=== PATIENT | female | born 1935 | race African-American/Black ===

== ENCOUNTER 2016-12-11 10:50 | Inpatient (IN) | payer OTHER ==
[2016-12-11] VITALS (14 sets, daily range): BP systolic 103–169; BP diastolic 44–78
[~2016-12-11] VITALS: Ht 162.6 cm; Wt 61.8 kg
[~2016-12-11 10:50] MED LIST: AYR SALINE NA14.1 GM BOTH NARES; FEOSOL44 MG/ML PO; FOLIC ACID1 MG PO; ISOSORBIDE DINI10 MG PO; ISOSORBIDE MONO30 MG PO; LISINOPRIL10 MG PO; LOPRESSOR25 MG PO; PANTOPRAZOLE SO40 MG PO; PREDNISONE5 MG/1 ML PO; PROTONIX40 MG PO; TYLENOL W/ CODE10 ML PO; VITAMIN C PO; VITAMIN C1000 M1 PO; VITAMIN D32000 UNI1 PO; ZESTRIL30 MG PO; [UNRECOGNIZED DRUG - OTHER] MC
[2016-12-11 11:44] LABS: EOSINOPHIL (%) 1.9 % (0-5); EOSINOPHIL COUNT 0.1 K/uL (0-0.3); HEMATOCRIT 16.5 % (36.0-46.0); IMMATURE GRANULOCYTE (%) 0.2 % (0.0-0.7); INSTRUMENT ABS NEUTROPHIL CT 3.6 K/uL; LYMPHOCYTE COUNT 0.3 K/uL (1.0-2.8); MCH 25.3 PG (29.0-34.0); MCHC 29.7 G/DL (30.0-36.0); MCV 85.1 FL (83-99); MEAN PLAT.VOLUME 12.1 uM^3 (9.5-12.4); MONOCYTE (%) 6.6 % (3-12); MONOCYTE COUNT 0.3 K/uL (0-0.8); NEUTROPHIL (%) 84.2 % (45-76); NEUTROPHIL COUNT 3.6 K/uL (1.8-6.4); PLATELET COUNT 227 K/uL (156-360); RBC DIS.WIDTH-CV 19.7 % (11.8-14.6); RED BLOOD COUNT 1.94 M/uL (3.80-5.20); WHITE BLOOD COUNT 4.2 K/uL (4.1-10.2)
[2016-12-11 11:45] LABS: INTER. NORMALIZED RATIO 1.1; PROTHROMBIN TIME 11.6 SEC (10.2-12.9)
[2016-12-11 11:46] LABS: CHLORIDE 115 mEq/L (99-109); POTASSIUM 4.3 mEq/L (3.7-5.4); SODIUM 141 mEq/L (136-147)
[2016-12-11 11:48] LABS: GLUCOSE 130 mg/dL (70-99)
[2016-12-11 11:49] LABS: ANION GAP 6 MEQ/L (2-14)
[2016-12-11 11:52] LABS: GFR ESTIMATE (CALCULATED) 46 mL/min/
[2016-12-11 11:53] LABS: UREA NITROGEN (BUN) 18 mg/dL (9-23)
[2016-12-11] MEDS ORDERED: AYR SALINE50 ML BOTH NARES (12:38)
[2016-12-11 21:46] LABS: HEMATOCRIT 22.8 % (36.0-46.0); MCV 85.4 FL (83-99)
[2016-12-12] VITALS (15 sets, daily range): BP systolic 136–171; BP diastolic 57–76
== END 2016-12-12 18:56 | disposition home or self-care (01) | DRG 812 ==
LOC: EME → EDBD 10:50 → EDOF 12:49 → 2EAST 12:49 → ENRESERV 13:24 → 2EAST 15:02
PROVIDERS: Internal Medicine Hematology & Oncology; Personal Emergency Response Attendant
DX: D50.0 Iron deficiency anemia secondary to blood loss (chronic) (principal); R04.0 Epistaxis; I78.0 Hereditary hemorrhagic telangiectasia; R55 Syncope and collapse; I10 Essential (primary) hypertension; K21.9 Gastro-esophageal reflux disease without esophagitis; M81.0 Age-related osteoporosis without current pathological fracture; R00.2 Palpitations
CPT/HCPCS: 80048; 85014; 85018; 85025; 85610; 85730; 86850; 86900; 86901; 86920; 93005; 99281; 99285; J1200; J1940; P9016

== ENCOUNTER 2017-01-02 16:02 | Observation (INO) | payer OTHER ==
[~2017-01-02] VITALS: Ht 165.1 cm; Wt 61.9 kg
[~2017-01-02 16:02] MED LIST changes: +AYR SALINE50 ML BOTH NARES
[2017-01-02 17:02] LABS: HEMATOCRIT 22.5 % (36.0-46.0); MCH 26.7 PG (29.0-34.0); MCHC 29.8 G/DL (30.0-36.0); PLATELET COUNT 196 K/uL (156-360); RBC DIS.WIDTH-CV 19.9 % (11.8-14.6); RED BLOOD COUNT 2.51 M/uL (3.80-5.20)
[2017-01-02 17:04] LABS: PROTHROMBIN TIME 11.5 SEC (10.2-12.9)
[2017-01-02 17:06] LABS: PTT 28.5 SEC (25-37)
[2017-01-02 17:06] LABS: MCV 89.6 FL (83-99); MEAN PLAT.VOLUME 9.1 uM^3 (9.5-12.4)
[2017-01-02 17:09] LABS: CHLORIDE 111 mEq/L (99-109); POTASSIUM 4.5 mEq/L (3.7-5.4); SODIUM 141 mEq/L (136-147)
[2017-01-02 17:11] LABS: GLUCOSE 137 mg/dL (70-99)
[2017-01-02 17:13] LABS: ANION GAP 9 MEQ/L (2-14)
[2017-01-02 17:15] LABS: GFR ESTIMATE (CALCULATED) 50 mL/min/
[2017-01-02 17:16] LABS: UREA NITROGEN (BUN) 15 mg/dL (9-23)
[2017-01-02 17:18] LABS: TROP-I INTERPRETATION NEGATIVE; TROPONIN-I < 0.01 ng/mL (0.0-0.30)
[2017-01-02 21:17] VITALS: BP 124/63
[2017-01-02 22:36] VITALS: BP 118/56
[2017-01-02 23:30] VITALS: BP 120/65
[2017-01-03] VITALS (8 sets, daily range): BP systolic 120–143; BP diastolic 57–66
[2017-01-03 03:24] LABS: HEMATOCRIT 25.2 % (36.0-46.0); MCV 87.5 FL (83-99)
[2017-01-03 09:33] LABS: HEMATOCRIT 28.5 % (36.0-46.0); MCV 87.7 FL (83-99)
== END 2017-01-03 13:15 | disposition home or self-care (01) ==
LOC: EME → EDBD 16:02 → EDOF 20:37 → ENRESERV 20:38 → 5WEST 22:21
PROVIDERS: Emergency Medicine; Hospitalist; Internal Medicine
PROC: 30233N1 Transfusion of Nonautologous Red Blood Cells into Peripheral Vein, Percutaneous Approach (ICD-10-PCS; principal; 2017-01-02)
DX: D50.0 Iron deficiency anemia secondary to blood loss (chronic) (principal); R55 Syncope and collapse; I78.0 Hereditary hemorrhagic telangiectasia; R04.0 Epistaxis; I10 Essential (primary) hypertension; M81.0 Age-related osteoporosis without current pathological fracture; K21.9 Gastro-esophageal reflux disease without esophagitis; R00.2 Palpitations
CPT/HCPCS: 70450; 71020; 80048; 84484; 85014; 85018; 85027; 85610; 85730; 86850; 86900; 86901; 86920; 93005; 99281; 99285; G0378; J1200; J1940; P9016

== ENCOUNTER 2017-01-17 16:05 | Observation (INO) | payer OTHER ==
[2017-01-17] VITALS (8 sets, daily range): BP systolic 114–152; BP diastolic 57–70
[~2017-01-17] VITALS: Ht 162.6 cm; Wt 61.3 kg
[2017-01-18] VITALS (9 sets, daily range): BP systolic 116–186; BP diastolic 58–76
[2017-01-18 08:27] LABS: MCH 27.2 PG (29.0-34.0); MCHC 30.3 G/DL (30.0-36.0); MCV 89.6 FL (83-99); MEAN PLAT.VOLUME 11.6 uM^3 (9.5-12.4); PLATELET COUNT 156 K/uL (156-360); RBC DIS.WIDTH-CV 16.2 % (11.8-14.6); RBC DIS.WIDTH-SD 53.1 % (39-53); RED BLOOD COUNT 3.35 M/uL (3.80-5.20); WHITE BLOOD COUNT 3.3 K/uL (4.1-10.2)
[2017-01-18 09:26] LABS: ANION GAP 5 MEQ/L (2-14); CHLORIDE 115 MEQ/L (99-109); POTASSIUM 4.6 MEQ/L (3.7-5.4); SAMPLE HEMOLYSIS CHECK 0; SAMPLE ICTERIC CHECK 1; SAMPLE LIPEMIA CHECK 0; SODIUM 144 MEQ/L (136-147)
[2017-01-18 09:31] LABS: GFR ESTIMATE (CALCULATED) 55 mL/min/; GLUCOSE 96 mg/dL (70-99); UREA NITROGEN (BUN) 16 mg/dL (9-23)
[2017-01-18 10:18] LABS: TROP-I INTERPRETATION NEGATIVE; TROPONIN-I 0.02 ng/mL (0.0-0.30)
== END 2017-01-18 14:30 | disposition home or self-care (01) ==
LOC: EME 16:05 → EDOF 16:49 → ENRESERV 16:54 → 5WEST 18:12
PROVIDERS: Internal Medicine; Nurse Practitioner Adult Health
PROC: 30233N1 Transfusion of Nonautologous Red Blood Cells into Peripheral Vein, Percutaneous Approach (ICD-10-PCS; principal; 2017-01-17)
DX: D50.0 Iron deficiency anemia secondary to blood loss (chronic) (principal); I78.0 Hereditary hemorrhagic telangiectasia; R07.9 Chest pain, unspecified; R04.0 Epistaxis; I10 Essential (primary) hypertension; M81.0 Age-related osteoporosis without current pathological fracture; K21.9 Gastro-esophageal reflux disease without esophagitis; Z66 Do not resuscitate
CPT/HCPCS: 80048; 84484; 85027; 86850; 86900; 86901; 86905; 86920; 93005; 99281; 99285; G0378; P9016

== ENCOUNTER 2017-02-14 12:03 | Observation (INO) | payer OTHER ==
[~2017-02-14] VITALS: Ht 167.6 cm; Wt 70.0 kg
[2017-02-14] MEDS ORDERED: TAMOXIFEN (13:38)
[2017-02-14 15:50] VITALS: BP 164/67
[2017-02-14 19:07] VITALS: BP 125/62
[2017-02-14 22:42] LABS: HEMATOCRIT 23.3 % (36.0-46.0); MCV 88.3 FL (83-99)
[2017-02-14 22:56] LABS: CHLORIDE 114 mEq/L (99-109); POTASSIUM 4.4 mEq/L (3.7-5.4); SODIUM 141 mEq/L (136-147)
[2017-02-14 22:58] LABS: GLUCOSE 121 mg/dL (70-99)
[2017-02-14 22:59] LABS: ANION GAP 4 MEQ/L (2-14)
[2017-02-14 23:02] LABS: ALKALINE PHOSPHATASE 61 IU/L (3-129); GFR ESTIMATE (CALCULATED) 55 mL/min/; TROP-I INTERPRETATION NEGATIVE; TROPONIN-I < 0.01 ng/mL (0.0-0.30)
[2017-02-14 23:03] LABS: UREA NITROGEN (BUN) 21 mg/dL (9-23)
[2017-02-14 23:50] VITALS: BP 137/60
[2017-02-15 03:57] VITALS: BP 160/68
[2017-02-15 04:05] LABS: ADD MIUA? YES; BILIRUBIN NEGATIVE; BLOOD NEGATIVE; COLOR YELLOW ((YELLOW)); GLUCOSE (STRIP) NEGATIVE; KETONES NEGATIVE; LEUKOCYTES SMALL; NITRITE NEGATIVE; PROTEIN (STRIP) NEGATIVE; SPECIFIC GRAVITY 1.011 (1.000-1.030); UROBILINOGEN 0.2 MG/DL (0.2-1.0)
[2017-02-15 04:15] LABS: BACTERIA RARE /HPF; EPITHELIAL CELLS RARE /HPF; MUCUS TRACE /LPF; RED BLOOD CELLS 0-5 /HPF (0-5); WHITE BLOOD CELLS 0-5 /HPF (0-5)
[2017-02-15 07:53] VITALS: BP 128/61
== END 2017-02-15 12:05 | disposition home or self-care (01) ==
LOC: EME 12:03 → 5SOUTH 13:07 → EDOF 13:07 → ENRESERV 13:08 → 5SOUTH 15:15 → ENPENDDIS 02-15 → 5SOUTH 02-15 12:05
PROVIDERS: Internal Medicine; Internal Medicine Hematology & Oncology
PROC: 30233N1 Transfusion of Nonautologous Red Blood Cells into Peripheral Vein, Percutaneous Approach (ICD-10-PCS; principal; 2017-02-14)
DX: D50.0 Iron deficiency anemia secondary to blood loss (chronic) (principal); I78.0 Hereditary hemorrhagic telangiectasia; R04.0 Epistaxis; I10 Essential (primary) hypertension; M81.0 Age-related osteoporosis without current pathological fracture; K21.9 Gastro-esophageal reflux disease without esophagitis; F41.9 Anxiety disorder, unspecified
CPT/HCPCS: 80048; 80053; 81003; 83735; 84484; 85014; 85018; 85027; 86850; 86900; 86901; 93005; 99281; 99285; G0378; J1200; J1940

== ENCOUNTER 2017-02-23 11:39 | Inpatient (IN) | payer OTHER ==
[~2017-02-23] VITALS: Ht 167.6 cm; Wt 64.9 kg
[~2017-02-23 11:39] MED LIST changes: +TAMOXIFEN PO
[2017-02-23 12:14] LABS: ADD MIUA? YES; BILIRUBIN NEGATIVE; BLOOD NEGATIVE; COLOR YELLOW ((YELLOW)); GLUCOSE (STRIP) NEGATIVE; KETONES NEGATIVE; LEUKOCYTES MODERATE; NITRITE NEGATIVE; PROTEIN (STRIP) NEGATIVE; SPECIFIC GRAVITY 1.009 (1.000-1.030); UROBILINOGEN 0.2 MG/DL (0.2-1.0)
[2017-02-23 12:24] LABS: BACTERIA NONE SEEN /HPF; CALCIUM OXALATE CRYSTALS 1+ /HPF; EPITHELIAL CELLS RARE /HPF; MUCUS TRACE /LPF; RED BLOOD CELLS 0-5 /HPF (0-5); UCUL ADDED? YES
[2017-02-23 12:25] LABS: HEMATOCRIT 22.1 % (36.0-46.0); MCH 28.2 PG (29.0-34.0); MCHC 29.9 G/DL (30.0-36.0); MEAN PLAT.VOLUME 12.4 uM^3 (9.5-12.4); PLATELET COUNT 212 K/uL (156-360); RBC DIS.WIDTH-CV 20.4 % (11.8-14.6); RBC DIS.WIDTH-SD 66.1 % (39-53); RED BLOOD COUNT 2.34 M/uL (3.80-5.20); WHITE BLOOD COUNT 5.6 K/uL (4.1-10.2)
[2017-02-23 12:26] LABS: MCV 94.4 FL (83-99)
[2017-02-23 12:30] LABS: CHLORIDE 112 mEq/L (99-109); POTASSIUM 4.4 mEq/L (3.7-5.4); SODIUM 142 mEq/L (136-147)
[2017-02-23 12:33] LABS: GLUCOSE 114 mg/dL (70-99)
[2017-02-23 12:34] LABS: ANION GAP 7 MEQ/L (2-14)
[2017-02-23 12:35] LABS: TOTAL BILIRUBIN 0.6 mg/dL (0.0-1.0)
[2017-02-23 12:36] LABS: ALKALINE PHOSPHATASE 54 IU/L (3-129); GFR ESTIMATE (CALCULATED) 46 mL/min/
[2017-02-23 12:38] LABS: UREA NITROGEN (BUN) 18 mg/dL (9-23)
[2017-02-23 16:15] VITALS: BP 145/61
[2017-02-23 16:56] VITALS: BP 132/70
[2017-02-23 17:15] VITALS: BP 129/69
[2017-02-23 18:15] VITALS: BP 126/58
[2017-02-23 19:15] VITALS: BP 134/60
[2017-02-23 23:00] VITALS: BP 117/56
[2017-02-24] VITALS (10 sets, daily range): BP systolic 115–164; BP diastolic 56–74
[2017-02-24 06:08] LABS: HEMATOCRIT 29.2 % (36.0-46.0); MCV 92.7 FL (83-99)
[2017-02-24 06:09] LABS: HEMATOCRIT 29.1 % (36.0-46.0); MCH 29.9 PG (29.0-34.0); MCV 93.6 FL (83-99); MEAN PLAT.VOLUME 11.8 uM^3 (9.5-12.4); PLATELET COUNT 152 K/uL (156-360); RBC DIS.WIDTH-CV 17.8 % (11.8-14.6); RBC DIS.WIDTH-SD 60.3 % (39-53); WHITE BLOOD COUNT 3.4 K/uL (4.1-10.2)
[2017-02-24 06:12] LABS: PROTHROMBIN TIME 11.6 SEC (10.2-12.9)
[2017-02-24 06:18] LABS: ANION GAP 6 MEQ/L (2-14); CHLORIDE 116 MEQ/L (99-109); GFR ESTIMATE (CALCULATED) 50 mL/min/; POTASSIUM 4.5 MEQ/L (3.7-5.4); SAMPLE HEMOLYSIS CHECK 0; SAMPLE ICTERIC CHECK 0; SAMPLE LIPEMIA CHECK 0; SODIUM 143 MEQ/L (136-147); UREA NITROGEN (BUN) 18 mg/dL (9-23)
[2017-02-24 06:19] LABS: RED BLOOD COUNT 3.11 M/uL (3.80-5.20)
[2017-02-24 06:40] LABS: GLUCOSE 84 mg/dL (70-99)
[2017-02-24 09:36] LABS: INTERNAL CONTROL VALID? YES
[2017-02-25 07:05] LABS: EOSINOPHIL (%) 4.4 % (0-5); EOSINOPHIL COUNT 0.2 K/uL (0-0.3); HEMATOCRIT 29.9 % (36.0-46.0); IMMATURE GRANULOCYTE (%) 0.2 % (0.0-0.7); INSTRUMENT ABS NEUTROPHIL CT 3.5 K/uL; LYMPHOCYTE COUNT 0.3 K/uL (1.0-2.8); MCH 29.7 PG (29.0-34.0); MCHC 31.4 G/DL (30.0-36.0); MCV 94.6 FL (83-99); MEAN PLAT.VOLUME 13.1 uM^3 (9.5-12.4); MONOCYTE (%) 7.5 % (3-12); MONOCYTE COUNT 0.3 K/uL (0-0.8); NEUTROPHIL (%) 81.9 % (45-76); NEUTROPHIL COUNT 3.5 K/uL (1.8-6.4); PLATELET COUNT 160 K/uL (156-360); RBC DIS.WIDTH-SD 62.4 % (39-53); RED BLOOD COUNT 3.16 M/uL (3.80-5.20); WHITE BLOOD COUNT 4.3 K/uL (4.1-10.2)
[2017-02-25 07:29] LABS: ANION GAP 6 MEQ/L (2-14); CHLORIDE 114 MEQ/L (99-109); GFR ESTIMATE (CALCULATED) 50 mL/min/; GLUCOSE 104 mg/dL (70-99); POTASSIUM 4.1 MEQ/L (3.7-5.4); SAMPLE HEMOLYSIS CHECK 0; SAMPLE ICTERIC CHECK 0; SAMPLE LIPEMIA CHECK 0; SODIUM 143 MEQ/L (136-147); UREA NITROGEN (BUN) 13 mg/dL (9-23)
[2017-02-25 07:30] VITALS: BP 134/63
[2017-02-25 11:05] VITALS: BP 152/64
[2017-02-25 15:46] VITALS: BP 145/64
[2017-02-25 19:46] VITALS: BP 154/76
[2017-02-26 00:05] VITALS: BP 143/71
[2017-02-26 04:37] VITALS: BP 133/71
[2017-02-26 07:06] LABS: HEMATOCRIT 29.6 % (36.0-46.0); MCH 29.4 PG (29.0-34.0); MCHC 31.8 G/DL (30.0-36.0); MCV 92.5 FL (83-99); MEAN PLAT.VOLUME 11.6 uM^3 (9.5-12.4); PLATELET COUNT 150 K/uL (156-360); RBC DIS.WIDTH-CV 17.6 % (11.8-14.6); WHITE BLOOD COUNT 3.3 K/uL (4.1-10.2)
[2017-02-26 07:31] VITALS: BP 140/90
[2017-02-26 07:31] LABS: ANION GAP 7 MEQ/L (2-14); CHLORIDE 112 MEQ/L (99-109); GFR ESTIMATE (CALCULATED) 55 mL/min/; GLUCOSE 84 mg/dL (70-99); POTASSIUM 4.3 MEQ/L (3.7-5.4); SAMPLE HEMOLYSIS CHECK 0; SAMPLE ICTERIC CHECK 0; SAMPLE LIPEMIA CHECK 0; SODIUM 141 MEQ/L (136-147); UREA NITROGEN (BUN) 10 mg/dL (9-23)
[2017-02-26] MEDS ORDERED: PANTOPRAZOLE SO40 MG PO (09:17)
[2017-02-26 11:27] VITALS: BP 144/88
== END 2017-02-26 14:47 | disposition home or self-care (01) | DRG 378 ==
LOC: EME 11:39 → EDOF 13:32 → 5SOUTH 13:32 → ENRESERV 13:35 → 5SOUTH 15:10
PROVIDERS: Internal Medicine
DX: K31.811 Angiodysplasia of stomach and duodenum with bleeding (principal); D62 Acute posthemorrhagic anemia; N17.9 Acute kidney failure, unspecified; I78.0 Hereditary hemorrhagic telangiectasia; K22.2 Esophageal obstruction; K31.5 Obstruction of duodenum; R04.0 Epistaxis; D50.9 Iron deficiency anemia, unspecified; I10 Essential (primary) hypertension; K21.9 Gastro-esophageal reflux disease without esophagitis; M81.0 Age-related osteoporosis without current pathological fracture
CPT/HCPCS: 80048; 80053; 81003; 82272; 85014; 85018; 85025; 85027; 85610; 85730; 86850; 86900; 86901; 86920; 87086; 93005; 99281; 99285; C9113; J0696; J1200; J7050; P9016

== ENCOUNTER 2017-03-04 14:24 | Inpatient (IN) | payer OTHER ==
[~2017-03-04] VITALS: Ht 167.6 cm; Wt 67.4 kg
[2017-03-04 15:26] LABS: HEMATOCRIT 31.7 % (36.0-46.0); MCHC 31.2 G/DL (30.0-36.0); MCV 89.8 FL (83-99); PLATELET COUNT 176 K/uL (156-360); RBC DIS.WIDTH-CV 16.8 % (11.8-14.6); RBC DIS.WIDTH-SD 54.4 % (39-53); RED BLOOD COUNT 3.53 M/uL (3.80-5.20); WHITE BLOOD COUNT 11.1 K/uL (4.1-10.2)
[2017-03-04 15:37] LABS: CHLORIDE 112 mEq/L (99-109); POTASSIUM 3.7 mEq/L (3.7-5.4)
[2017-03-04 15:38] LABS: SODIUM 143 mEq/L (136-147)
[2017-03-04 15:39] LABS: GLUCOSE 107 mg/dL (70-99)
[2017-03-04 15:41] LABS: ANION GAP 10 MEQ/L (2-14)
[2017-03-04 15:43] LABS: GFR ESTIMATE (CALCULATED) 50 mL/min/
[2017-03-04 15:44] LABS: UREA NITROGEN (BUN) 14 mg/dL (9-23)
[2017-03-04 15:48] LABS: TROP-I INTERPRETATION NEGATIVE; TROPONIN-I 0.04 ng/mL (0.0-0.30)
[2017-03-04 17:33] LABS: HDL CHOLESTEROL 53 MG/DL (Desirable>=50); LDL CHOLESTEROL 95 mg/dL (Desirable<100); NON-HDL CHOLESTEROL 108 mg/dL (Desirable<160); SAMPLE HEMOLYSIS CHECK 0; SAMPLE ICTERIC CHECK 0; SAMPLE LIPEMIA CHECK 0; TOTAL CHOLESTEROL 161 mg/dL (Desirable<200); TRIGLYCERIDES 65 MG/DL (Normal: <150)
[2017-03-04 19:59] VITALS: BP 103/58
[2017-03-04 22:26] LABS: TROP-I INTERPRETATION NEGATIVE; TROPONIN-I 0.07 ng/mL (0.0-0.30)
[2017-03-04 23:38] VITALS: BP 121/55
[2017-03-05 02:43] LABS: C DIFF TOXIN POSITIVE (NEGATIVE)
[2017-03-05 02:45] LABS: PROBE CHECK PASS
[2017-03-05 04:00] VITALS: BP 134/71
[2017-03-05 08:30] VITALS: BP 132/74
[2017-03-05 12:20] VITALS: BP 137/75
[2017-03-05 12:59] LABS: ANION GAP 8 MEQ/L (2-14); CHLORIDE 109 MEQ/L (99-109); SAMPLE HEMOLYSIS CHECK 2; SAMPLE ICTERIC CHECK 0; SAMPLE LIPEMIA CHECK 0; SODIUM 140 MEQ/L (136-147)
[2017-03-05 13:00] LABS: POTASSIUM 4.9 MEQ/L (3.7-5.4)
[2017-03-05 13:05] LABS: GFR ESTIMATE (CALCULATED) 43 mL/min/; GLUCOSE 110 mg/dL (70-99); UREA NITROGEN (BUN) 19 mg/dL (9-23)
[2017-03-05 13:07] LABS: TROP-I INTERPRETATION NEGATIVE; TROPONIN-I 0.07 ng/mL (0.0-0.30)
[2017-03-05 13:08] LABS: HEMATOCRIT 33.2 % (36.0-46.0); MCH 27.6 PG (29.0-34.0); MCHC 30.4 G/DL (30.0-36.0); MCV 90.7 FL (83-99); PLATELET COUNT 219 K/uL (156-360); RBC DIS.WIDTH-CV 17.1 % (11.8-14.6); RBC DIS.WIDTH-SD 56.2 % (39-53); RED BLOOD COUNT 3.66 M/uL (3.80-5.20); WHITE BLOOD COUNT 10.9 K/uL (4.1-10.2)
[2017-03-05 16:10] VITALS: BP 130/72
[2017-03-05 19:00] VITALS: BP 130/55
[2017-03-06] VITALS (7 sets, daily range): BP systolic 108–169; BP diastolic 50–74
[2017-03-06 07:23] LABS: ANION GAP 8 MEQ/L (2-14); CHLORIDE 109 MEQ/L (99-109); EOSINOPHIL (%) 1.1 % (0-5); EOSINOPHIL COUNT 0.1 K/uL (0-0.3); GFR ESTIMATE (CALCULATED) 35 mL/min/; GLUCOSE 104 mg/dL (70-99); HEMATOCRIT 31.1 % (36.0-46.0); IMMATURE GRANULOCYTE (%) 0.5 % (0.0-0.7); INSTRUMENT ABS NEUTROPHIL CT 5.7 K/uL; LYMPHOCYTE COUNT 0.3 K/uL (1.0-2.8); MCH 27.7 PG (29.0-34.0); MCHC 30.5 G/DL (30.0-36.0); MCV 90.7 FL (83-99); MONOCYTE (%) 5.4 % (3-12); MONOCYTE COUNT 0.4 K/uL (0-0.8); NEUTROPHIL (%) 88.8 % (45-76); NEUTROPHIL COUNT 5.7 K/uL (1.8-6.4); RBC DIS.WIDTH-CV 16.9 % (11.8-14.6); RBC DIS.WIDTH-SD 55.6 % (39-53); RED BLOOD COUNT 3.43 M/uL (3.80-5.20); SAMPLE HEMOLYSIS CHECK 0; SAMPLE ICTERIC CHECK 0; SAMPLE LIPEMIA CHECK 0; SODIUM 140 MEQ/L (136-147); UREA NITROGEN (BUN) 25 mg/dL (9-23); WHITE BLOOD COUNT 6.5 K/uL (4.1-10.2)
[2017-03-06 07:25] LABS: POTASSIUM 3.6 MEQ/L (3.7-5.4)
[2017-03-06 07:45] LABS: PLAT.SUFFICIENCY DECREASED
[2017-03-06 07:46] LABS: PLATELET COUNT 135 K/uL (156-360)
[2017-03-07 04:10] VITALS: BP 135/71
[2017-03-07 06:13] LABS: EOSINOPHIL (%) 1.6 % (0-5); EOSINOPHIL COUNT 0.1 K/uL (0-0.3); HEMATOCRIT 29.7 % (36.0-46.0); IMMATURE GRANULOCYTE (%) 0.5 % (0.0-0.7); INSTRUMENT ABS NEUTROPHIL CT 3.6 K/uL; LYMPHOCYTE COUNT 0.3 K/uL (1.0-2.8); MCH 27.1 PG (29.0-34.0); MCHC 30.6 G/DL (30.0-36.0); MCV 88.4 FL (83-99); MONOCYTE (%) 6.9 % (3-12); MONOCYTE COUNT 0.3 K/uL (0-0.8); NEUTROPHIL (%) 83.1 % (45-76); NEUTROPHIL COUNT 3.6 K/uL (1.8-6.4); PLATELET COUNT 103 K/uL (156-360); RBC DIS.WIDTH-CV 17.1 % (11.8-14.6); RBC DIS.WIDTH-SD 53.9 % (39-53); RED BLOOD COUNT 3.36 M/uL (3.80-5.20); WHITE BLOOD COUNT 4.3 K/uL (4.1-10.2)
[2017-03-07 06:27] LABS: ANION GAP 8 MEQ/L (2-14); CHLORIDE 113 MEQ/L (99-109); GFR ESTIMATE (CALCULATED) 43 mL/min/; GLUCOSE 100 mg/dL (70-99); POTASSIUM 3.7 MEQ/L (3.7-5.4); SAMPLE HEMOLYSIS CHECK 0; SAMPLE ICTERIC CHECK 0; SAMPLE LIPEMIA CHECK 0; SODIUM 139 MEQ/L (136-147); UREA NITROGEN (BUN) 20 mg/dL (9-23)
[2017-03-07 07:30] VITALS: BP 132/77
[2017-03-07 11:21] VITALS: BP 155/68
[2017-03-07 15:16] VITALS: BP 164/70
[2017-03-07 20:36] VITALS: BP 137/76
[2017-03-07 22:20] VITALS: BP 108/69; BP 128/77
[2017-03-08 03:29] VITALS: BP 132/60
[2017-03-08 05:53] LABS: HEMATOCRIT 28.9 % (36.0-46.0); MCH 27.1 PG (29.0-34.0); MCHC 30.8 G/DL (30.0-36.0); MCV 87.8 FL (83-99); RBC DIS.WIDTH-CV 16.9 % (11.8-14.6); RBC DIS.WIDTH-SD 54.1 % (39-53); RED BLOOD COUNT 3.29 M/uL (3.80-5.20); WHITE BLOOD COUNT 3.6 K/uL (4.1-10.2)
[2017-03-08 05:56] LABS: PLATELET COUNT 189 K/uL (156-360)
[2017-03-08 06:29] LABS: ANION GAP 8 MEQ/L (2-14); CHLORIDE 116 MEQ/L (99-109); GFR ESTIMATE (CALCULATED) 50 mL/min/; GLUCOSE 95 mg/dL (70-99); POTASSIUM 3.6 MEQ/L (3.7-5.4); SAMPLE HEMOLYSIS CHECK 0; SAMPLE ICTERIC CHECK 0; SAMPLE LIPEMIA CHECK 0; SODIUM 142 MEQ/L (136-147); UREA NITROGEN (BUN) 19 mg/dL (9-23)
[2017-03-08 09:35] VITALS: BP 139/67
[2017-03-08 11:34] VITALS: BP 169/82
[2017-03-08 16:37] VITALS: BP 142/74
[2017-03-08 18:47] VITALS: BP 139/75
[2017-03-08 22:18] VITALS: BP 140/68
[2017-03-09] VITALS (7 sets, daily range): BP systolic 127–179; BP diastolic 67–81
[2017-03-09 06:39] LABS: EOSINOPHIL (%) 2.5 % (0-5); EOSINOPHIL COUNT 0.1 K/uL (0-0.3); IMMATURE GRANULOCYTE (%) 0.8 % (0.0-0.7); INSTRUMENT ABS NEUTROPHIL CT 2.8 K/uL; LYMPHOCYTE COUNT 0.3 K/uL (1.0-2.8); MCH 26.5 PG (29.0-34.0); MCHC 30.7 G/DL (30.0-36.0); MCV 86.4 FL (83-99); MONOCYTE (%) 6.8 % (3-12); MONOCYTE COUNT 0.2 K/uL (0-0.8); NEUTROPHIL (%) 80.2 % (45-76); NEUTROPHIL COUNT 2.8 K/uL (1.8-6.4); PLATELET COUNT 192 K/uL (156-360); RBC DIS.WIDTH-CV 17.1 % (11.8-14.6); RBC DIS.WIDTH-SD 53.1 % (39-53); RED BLOOD COUNT 3.24 M/uL (3.80-5.20); WHITE BLOOD COUNT 3.5 K/uL (4.1-10.2)
[2017-03-09 07:01] LABS: ANION GAP 8 MEQ/L (2-14); CHLORIDE 116 MEQ/L (99-109); GFR ESTIMATE (CALCULATED) 55 mL/min/; GLUCOSE 92 mg/dL (70-99); POTASSIUM 3.7 MEQ/L (3.7-5.4); SAMPLE HEMOLYSIS CHECK 0; SAMPLE ICTERIC CHECK 0; SAMPLE LIPEMIA CHECK 0; SODIUM 141 MEQ/L (136-147); UREA NITROGEN (BUN) 16 mg/dL (9-23)
[2017-03-09 09:30] LABS: TROP-I INTERPRETATION NEGATIVE; TROPONIN-I 0.03 ng/mL (0.0-0.30)
[2017-03-09 16:31] LABS: TROP-I INTERPRETATION NEGATIVE; TROPONIN-I 0.03 ng/mL (0.0-0.30)
[2017-03-10] VITALS (10 sets, daily range): BP systolic 112–167; BP diastolic 59–93
[2017-03-10 05:39] LABS: EOSINOPHIL (%) 4.4 % (0-5); EOSINOPHIL COUNT 0.2 K/uL (0-0.3); HEMATOCRIT 24.7 % (36.0-46.0); IMMATURE GRANULOCYTE (%) 0.6 % (0.0-0.7); INSTRUMENT ABS NEUTROPHIL CT 2.5 K/uL; LYMPHOCYTE COUNT 0.3 K/uL (1.0-2.8); MCH 26.3 PG (29.0-34.0); MCHC 30.8 G/DL (30.0-36.0); MCV 85.5 FL (83-99); MONOCYTE (%) 9.7 % (3-12); MONOCYTE COUNT 0.3 K/uL (0-0.8); NEUTROPHIL COUNT 2.5 K/uL (1.8-6.4); RBC DIS.WIDTH-CV 17.6 % (11.8-14.6); RBC DIS.WIDTH-SD 53.2 % (39-53); RED BLOOD COUNT 2.89 M/uL (3.80-5.20); WHITE BLOOD COUNT 3.4 K/uL (4.1-10.2)
[2017-03-10 05:48] LABS: ANION GAP 5 MEQ/L (2-14); CHLORIDE 117 MEQ/L (99-109); GFR ESTIMATE (CALCULATED) 55 mL/min/; GLUCOSE 90 mg/dL (70-99); POTASSIUM 3.6 MEQ/L (3.7-5.4); SAMPLE HEMOLYSIS CHECK 0; SAMPLE ICTERIC CHECK 0; SAMPLE LIPEMIA CHECK 0; SODIUM 142 MEQ/L (136-147); UREA NITROGEN (BUN) 16 mg/dL (9-23)
[2017-03-10 05:54] LABS: PLAT.SUFFICIENCY DECREASED
[2017-03-10 06:10] LABS: PLATELET COUNT 106 K/uL (156-360)
[2017-03-10] MEDS ORDERED: LOPRESSOR25 MG PO (16:08)
[2017-03-10] MEDS ORDERED: FLAGYL500 MG PO (16:09)
[2017-03-10] MEDS ORDERED: FAMOTIDINE20 MG PO (16:09)
[2017-03-10 18:34] LABS: HEMATOCRIT 31.8 % (36.0-46.0); MCV 85.3 FL (83-99)
== END 2017-03-10 21:10 | disposition home or self-care (01) | DRG 309 ==
LOC: EME → EDBD 14:24 → 4EAST 16:13 → EDOF 16:13 → ENRESERV 16:16 → 4EAST 19:39
PROVIDERS: Emergency Medicine; Internal Medicine; Internal Medicine Gastroenterology
DX: I48.91 Unspecified atrial fibrillation (principal); A04.72 Enterocolitis due to Clostridium difficile, not specified as recurrent; M19.90 Unspecified osteoarthritis, unspecified site; R55 Syncope and collapse; M81.0 Age-related osteoporosis without current pathological fracture; N17.9 Acute kidney failure, unspecified; I10 Essential (primary) hypertension; D64.9 Anemia, unspecified; I78.0 Hereditary hemorrhagic telangiectasia; K21.9 Gastro-esophageal reflux disease without esophagitis; I78.1 Nevus, non-neoplastic; E11.9 Type 2 diabetes mellitus without complications; Z79.810 Long term (current) use of selective estrogen receptor modulators (SERMs); Z82.49 Family history of ischemic heart disease and other diseases of the circulatory system; I35.0 Nonrheumatic aortic (valve) stenosis; R00.1 Bradycardia, unspecified
CPT/HCPCS: 71010; 80048; 80061; 84443; 84484; 85014; 85018; 85025; 85027; 86850; 86900; 86901; 86920; 87493; 93005; 93306; 99281; 99285; C9113; J1160; J1200; J2270; J7030; J7050; P9016; Q0138; S0030

== ENCOUNTER 2017-03-23 12:35 | Emergency (ER) | payer OTHER ==
[~2017-03-23] VITALS: Ht 165.1 cm; Wt 69.0 kg
[~2017-03-23 12:35] MED LIST changes: +FAMOTIDINE20 MG PO; +FLAGYL500 MG PO
[2017-03-23 13:58] LABS: CHLORIDE 111 mEq/L (99-109); POTASSIUM 3.9 mEq/L (3.7-5.4); SODIUM 144 mEq/L (136-147)
[2017-03-23 13:59] LABS: GLUCOSE 109 mg/dL (70-99)
[2017-03-23 14:00] LABS: HEMATOCRIT 30.8 % (36.0-46.0); MCH 27.7 PG (29.0-34.0); MCHC 31.2 G/DL (30.0-36.0); RBC DIS.WIDTH-CV 18.6 % (11.8-14.6); RBC DIS.WIDTH-SD 59.4 % (39-53); RED BLOOD COUNT 3.46 M/uL (3.80-5.20); WHITE BLOOD COUNT 3.5 K/uL (4.1-10.2)
[2017-03-23 14:01] LABS: ANION GAP 10 MEQ/L (2-14); PLATELET COUNT 142 K/uL (156-360)
[2017-03-23 14:03] LABS: GFR ESTIMATE (CALCULATED) 55 mL/min/
[2017-03-23 14:04] LABS: UREA NITROGEN (BUN) 8 mg/dL (9-23)
[2017-03-23 14:08] LABS: TROP-I INTERPRETATION NEGATIVE; TROPONIN-I 0.02 ng/mL (0.0-0.30)
[2017-03-23 17:44] LABS: TOTAL BILIRUBIN 0.7 mg/dL (0.0-1.0)
[2017-03-23 17:45] LABS: ALKALINE PHOSPHATASE 84 IU/L (3-129)
[2017-03-23 17:48] LABS: DIRECT BILIRUBIN 0.3 mg/dL (0.0-0.3)
[2017-03-23] MEDS ORDERED: LASIX20 MG PO (19:58)
[2017-03-23 20:26] VITALS: BP 156/84
== END 2017-03-23 20:27 | disposition home or self-care (01) ==
LOC: EME 12:35
DX: I11.0 Hypertensive heart disease with heart failure (principal); I50.9 Heart failure, unspecified; I48.91 Unspecified atrial fibrillation; D64.9 Anemia, unspecified; I78.0 Hereditary hemorrhagic telangiectasia; F32.9 Major depressive disorder, single episode, unspecified; Z85.9 Personal history of malignant neoplasm, unspecified
CPT/HCPCS: 71020; 80048; 80076; 83880; 84443; 84484; 85027; 93005; 99281; 99284

== ENCOUNTER 2017-04-09 09:13 | Observation (INO) | payer OTHER ==
[~2017-04-09] VITALS: Ht 162.6 cm; Wt 61.3 kg
[2017-04-09] VITALS (10 sets, daily range): BP systolic 91–149; BP diastolic 59–80
[~2017-04-09 09:13] MED LIST changes: +LASIX20 MG PO; -VITAMIN C PO; +[UNRECOGNIZED DRUG - CODE] PO
[2017-04-09 10:40] LABS: MCH 25.8 PG (29.0-34.0); MCHC 31.1 G/DL (30.0-36.0); MEAN PLAT.VOLUME 12.6 uM^3 (9.5-12.4); RBC DIS.WIDTH-CV 19.2 % (11.8-14.6); RBC DIS.WIDTH-SD 54.2 % (39-53); RED BLOOD COUNT 2.17 M/uL (3.80-5.20); WHITE BLOOD COUNT 4.5 K/uL (4.1-10.2)
[2017-04-09 10:41] LABS: MCV 82.9 FL (83-99); PLATELET COUNT 298 K/uL (156-360)
[2017-04-09 10:46] LABS: CHLORIDE 107 mEq/L (99-109); POTASSIUM 3.9 mEq/L (3.7-5.4); SODIUM 138 mEq/L (136-147)
[2017-04-09 10:48] LABS: GLUCOSE 161 mg/dL (70-99)
[2017-04-09 10:49] LABS: ANION GAP 8 MEQ/L (2-14)
[2017-04-09 10:52] LABS: GFR ESTIMATE (CALCULATED) 46 mL/min/; UREA NITROGEN (BUN) 25 mg/dL (9-23)
[2017-04-09 11:19] LABS: TROP-I INTERPRETATION NEGATIVE; TROPONIN-I 0.02 ng/mL (0.0-0.30)
[2017-04-09] MEDS ORDERED: LOPRESSOR25 MG PO (14:09)
[2017-04-09] MEDS ORDERED: LISINOPRIL10 MG PO (14:12)
[2017-04-09] MEDS ORDERED: FUROSEMIDE40 MG PO (14:12)
[2017-04-09] MEDS ORDERED: ISOSORBIDE DINI10 MG PO (14:27)
[2017-04-09] MEDS ORDERED: FERAHEME510 MG/17 IV (14:36)
[2017-04-10] VITALS (11 sets, daily range): BP systolic 101–137; BP diastolic 58–76
[2017-04-10 06:21] LABS: HEMATOCRIT 23.7 % (36.0-46.0); MCH 26.3 PG (29.0-34.0); MCHC 32.5 G/DL (30.0-36.0); MCV 80.9 FL (83-99); RBC DIS.WIDTH-CV 18.1 % (11.8-14.6); RBC DIS.WIDTH-SD 53.5 % (39-53); WHITE BLOOD COUNT 3.3 K/uL (4.1-10.2)
[2017-04-10 06:22] LABS: RED BLOOD COUNT 2.93 M/uL (3.80-5.20)
[2017-04-10 09:07] LABS: PLATELET CLUMPS PRESENT - PLATELET COUNT APPEARS ADQ.; PLATELET COUNT UNABLE TO REPORT K/uL (156-360)
[2017-04-10 11:47] LABS: ADD MIUA? YES; BILIRUBIN NEGATIVE; BLOOD NEGATIVE; COLOR YELLOW ((YELLOW)); GLUCOSE (STRIP) NEGATIVE; KETONES NEGATIVE; LEUKOCYTES TRACE; NITRITE NEGATIVE; PROTEIN (STRIP) NEGATIVE; SPECIFIC GRAVITY 1.011 (1.000-1.030); UROBILINOGEN 0.2 MG/DL (0.2-1.0)
[2017-04-10 12:40] LABS: BACTERIA NONE SEEN /HPF; EPITHELIAL CELLS NONE SEEN /HPF; MUCUS NONE SEEN /LPF; UCUL ADDED? NO; WHITE BLOOD CELLS 0-5 /HPF (0-5)
[2017-04-11 00:26] VITALS: BP 131/62
[2017-04-11 06:56] LABS: HEMATOCRIT 25.4 % (36.0-46.0); MCHC 32.7 G/DL (30.0-36.0); MCV 82.7 FL (83-99); MEAN PLAT.VOLUME 12.5 uM^3 (9.5-12.4); PLATELET COUNT 219 K/uL (156-360); RBC DIS.WIDTH-CV 18.1 % (11.8-14.6); RBC DIS.WIDTH-SD 54.4 % (39-53); RED BLOOD COUNT 3.07 M/uL (3.80-5.20); WHITE BLOOD COUNT 4.3 K/uL (4.1-10.2)
[2017-04-11 07:15] LABS: ANION GAP 6 MEQ/L (2-14); CHLORIDE 114 MEQ/L (99-109); GFR ESTIMATE (CALCULATED) 55 mL/min/; POTASSIUM 4.5 MEQ/L (3.7-5.4); SAMPLE HEMOLYSIS CHECK 0; SAMPLE ICTERIC CHECK 0; SAMPLE LIPEMIA CHECK 0; UREA NITROGEN (BUN) 33 mg/dL (9-23)
[2017-04-11 07:18] LABS: GLUCOSE 102 mg/dL (70-99); SODIUM 145 MEQ/L (136-147)
[2017-04-11 07:21] VITALS: BP 123/74
== END 2017-04-11 11:00 | disposition home or self-care (01) ==
LOC: EME 09:13 → EDOF 11:52 → 5SOUTH 11:52 → ENRESERV 12:04 → CANRESERV 12:04 → ENRESERV 12:15 → 5SOUTH 15:35 → ENPENDDIS 04-11 → 5SOUTH 04-11 11:00
PROVIDERS: Internal Medicine; Nurse Practitioner Adult Health
PROC: 30233N1 Transfusion of Nonautologous Red Blood Cells into Peripheral Vein, Percutaneous Approach (ICD-10-PCS; principal; 2017-04-09)
DX: D50.9 Iron deficiency anemia, unspecified (principal); I78.0 Hereditary hemorrhagic telangiectasia; K31.819 Angiodysplasia of stomach and duodenum without bleeding; I48.91 Unspecified atrial fibrillation; I13.0 Hypertensive heart and chronic kidney disease with heart failure and stage 1 through stage 4 chronic kidney disease, or unspecified chronic kidney disease; I50.9 Heart failure, unspecified; N18.9 Chronic kidney disease, unspecified; R04.0 Epistaxis; M81.0 Age-related osteoporosis without current pathological fracture; Z86.19 Personal history of other infectious and parasitic diseases
CPT/HCPCS: 71020; 80048; 81003; 84484; 85014; 85018; 85027; 86850; 86870; 86900; 86901; 86920; 93005; 99281; 99285; G0378; J1200; J1756; J1940; J7050; P9016

== ENCOUNTER 2017-04-17 12:22 | Inpatient (IN) | payer OTHER ==
[2017-04-17] VITALS (9 sets, daily range): BP systolic 80–116; BP diastolic 46–56
[~2017-04-17] VITALS: Ht 162.6 cm; Wt 60.5 kg
[~2017-04-17 12:22] MED LIST changes: +FERAHEME510 MG/17 IV; +FUROSEMIDE40 MG PO
[2017-04-17 13:14] LABS: CHLORIDE 107 mEq/L (99-109); POTASSIUM 4.1 mEq/L (3.7-5.4); SODIUM 138 mEq/L (136-147)
[2017-04-17 13:16] LABS: GLUCOSE 113 mg/dL (70-99)
[2017-04-17 13:19] LABS: HEMATOCRIT 20.2 % (36.0-46.0); MCH 26.8 PG (29.0-34.0); MCHC 31.2 G/DL (30.0-36.0); PLATELET COUNT 271 K/uL (156-360); RBC DIS.WIDTH-CV 21.9 % (11.8-14.6); RBC DIS.WIDTH-SD 66.7 % (39-53); WHITE BLOOD COUNT 6.1 K/uL (4.1-10.2)
[2017-04-17 13:20] LABS: CREATININE 1.4 mg/dL (0.6-1.3); GFR ESTIMATE (CALCULATED) 46 mL/min/; HEMOGLOBIN 6.3 G/DL (11.9-15.5); RED BLOOD COUNT 2.35 M/uL (3.80-5.20)
[2017-04-17 13:21] LABS: UREA NITROGEN (BUN) 35 mg/dL (9-23)
[2017-04-17 15:49] LABS: PTT 19.1 SEC (25-37)
[2017-04-18] VITALS (16 sets, daily range): BP systolic 83–121; BP diastolic 49–61
[2017-04-18 06:40] LABS: HEMATOCRIT 22.7 % (36.0-46.0); HEMOGLOBIN 7.2 G/DL (11.9-15.5); MCH 28.2 PG (29.0-34.0); MCHC 31.7 G/DL (30.0-36.0); RBC DIS.WIDTH-CV 18.9 % (11.8-14.6); RBC DIS.WIDTH-SD 60.9 % (39-53); RED BLOOD COUNT 2.55 M/uL (3.80-5.20); WHITE BLOOD COUNT 4.3 K/uL (4.1-10.2)
[2017-04-18 06:52] LABS: CHLORIDE 109 MEQ/L (99-109); CREATININE 1.4 MG/DL (0.6-1.3); GFR ESTIMATE (CALCULATED) 46 mL/min/; GLUCOSE 102 mg/dL (70-99); POTASSIUM 4.2 MEQ/L (3.7-5.4); SODIUM 139 MEQ/L (136-147); UREA NITROGEN (BUN) 46 mg/dL (9-23)
[2017-04-18 06:55] LABS: PLAT.SUFFICIENCY ADEQUATE; PLATELET CLUMPS PRESENT - PLATELET COUNT APPEARS ADQ.; PLATELET COUNT UNABLE TO REPORT K/uL (156-360)
[2017-04-18 18:31] LABS: HEMATOCRIT 29.2 % (36.0-46.0); HEMOGLOBIN 9.5 G/DL (11.9-15.5); MCV 86.9 FL (83-99)
[2017-04-19 01:01] LABS: HEMATOCRIT 27.5 % (36.0-46.0); HEMOGLOBIN 9.1 G/DL (11.9-15.5); MCV 85.1 FL (83-99)
[2017-04-19 03:35] VITALS: BP 113/63
[2017-04-19 06:20] LABS: HEMATOCRIT 28.5 % (36.0-46.0); HEMOGLOBIN 9.3 G/DL (11.9-15.5); MCH 27.9 PG (29.0-34.0); MCHC 32.6 G/DL (30.0-36.0); MCV 85.6 FL (83-99); PLATELET COUNT 161 K/uL (156-360); RBC DIS.WIDTH-CV 17.8 % (11.8-14.6); RBC DIS.WIDTH-SD 54.6 % (39-53); RED BLOOD COUNT 3.33 M/uL (3.80-5.20); WHITE BLOOD COUNT 4.7 K/uL (4.1-10.2)
[2017-04-19 06:48] LABS: CHLORIDE 111 MEQ/L (99-109); CREATININE 1.4 MG/DL (0.6-1.3); GFR ESTIMATE (CALCULATED) 46 mL/min/; GLUCOSE 106 mg/dL (70-99); POTASSIUM 3.7 MEQ/L (3.7-5.4); SODIUM 142 MEQ/L (136-147); UREA NITROGEN (BUN) 41 mg/dL (9-23)
[2017-04-19 07:58] VITALS: BP 112/66
[2017-04-19] MEDS ORDERED: FAMOTIDINE20 MG PO ×3 (08:36→09:15)
[2017-04-19] MEDS ORDERED: SUCRALFATE1 GM/10 ML PO ×2 (08:36→09:16)
[2017-05-09] MEDS ORDERED: VITAMIN D32000 UNI1 PO (09:18)
[2017-05-09] MEDS ORDERED: ACID CONTROLLER20 MG PO (09:20)
== END 2017-04-19 10:51 | disposition home or self-care (01) | DRG 300 ==
LOC: EME 12:22 → EDOF 14:42 → ENRESERV 14:44 → 3EAST 15:50
PROVIDERS: Emergency Medicine; Hospitalist
PROC: 30233N1 Transfusion of Nonautologous Red Blood Cells into Peripheral Vein, Percutaneous Approach (ICD-10-PCS; principal; 2017-04-17)
DX: I78.0 Hereditary hemorrhagic telangiectasia (principal); K92.2 Gastrointestinal hemorrhage, unspecified; D62 Acute posthemorrhagic anemia; I50.32 Chronic diastolic (congestive) heart failure; I48.91 Unspecified atrial fibrillation; I13.0 Hypertensive heart and chronic kidney disease with heart failure and stage 1 through stage 4 chronic kidney disease, or unspecified chronic kidney disease; N18.9 Chronic kidney disease, unspecified; K31.819 Angiodysplasia of stomach and duodenum without bleeding; M81.0 Age-related osteoporosis without current pathological fracture; L80 Vitiligo; Z86.19 Personal history of other infectious and parasitic diseases; Z82.49 Family history of ischemic heart disease and other diseases of the circulatory system; Z79.899 Other long term (current) drug therapy
CPT/HCPCS: 80048; 85014; 85018; 85027; 85610; 85730; 86850; 86900; 86901; 86920; 93005; 99281; 99285; J1200; J1940; J7040; J7050; P9016; Q0138; S0028

== ENCOUNTER 2017-04-27 22:31 | Inpatient (IN) | payer OTHER ==
[~2017-04-27] VITALS: Ht 162.6 cm; Wt 61.8 kg
[~2017-04-27 22:31] MED LIST changes: +SUCRALFATE1 GM/10 ML PO
[2017-04-27 23:24] LABS: INTER. NORMALIZED RATIO 1.1
[2017-04-27 23:25] LABS: HEMATOCRIT 18.3 % (36.0-46.0); MCHC 30.6 G/DL (30.0-36.0); RBC DIS.WIDTH-SD 66.2 % (39-53); WHITE BLOOD COUNT 4.1 K/uL (4.1-10.2)
[2017-04-27 23:26] LABS: HEMOGLOBIN 5.6 G/DL (11.9-15.5); MCV 91.5 FL (83-99); PLATELET COUNT 218 K/uL (156-360)
[2017-04-27 23:28] LABS: CHLORIDE 109 mEq/L (99-109); POTASSIUM 3.5 mEq/L (3.7-5.4); PTT 28.9 SEC (25-37); SODIUM 140 mEq/L (136-147)
[2017-04-27 23:31] LABS: GLUCOSE 114 mg/dL (70-99); TOTAL PROTEIN 4.9 g/dL (6.4-8.3)
[2017-04-27 23:33] LABS: TOTAL BILIRUBIN 0.7 mg/dL (0.0-1.0)
[2017-04-27 23:34] LABS: ALKALINE PHOSPHATASE 80 IU/L (3-129); CREATININE 1.5 mg/dL (0.6-1.3); GFR ESTIMATE (CALCULATED) 43 mL/min/
[2017-04-27 23:35] LABS: UREA NITROGEN (BUN) 48 mg/dL (9-23)
[2017-04-27 23:36] LABS: AST (GOT) 21 IU/L (2-34)
[2017-04-27 23:37] LABS: ALT (GPT) 17 IU/L (3-49)
[2017-04-27 23:38] LABS: LIPASE 54 U/L (1.0-51.0); TROP-I INTERPRETATION NEGATIVE; TROPONIN-I 0.02 ng/mL (0.0-0.30)
[2017-04-28] VITALS (13 sets, daily range): BP systolic 93–113; BP diastolic 55–65
[2017-04-28 13:42] LABS: HEMATOCRIT 23.6 % (36.0-46.0); HEMOGLOBIN 7.5 G/DL (11.9-15.5); MCH 28.1 PG (29.0-34.0); MCHC 31.8 G/DL (30.0-36.0); MCV 88.4 FL (83-99); PLATELET COUNT 161 K/uL (156-360); RBC DIS.WIDTH-CV 18.2 % (11.8-14.6); RBC DIS.WIDTH-SD 58.4 % (39-53); WHITE BLOOD COUNT 3.1 K/uL (4.1-10.2)
[2017-04-28 13:46] LABS: RED BLOOD COUNT 2.67 M/uL (3.80-5.20)
[2017-04-28 13:54] LABS: CHLORIDE 111 mEq/L (99-109); POTASSIUM 4.1 mEq/L (3.7-5.4); SODIUM 139 mEq/L (136-147)
[2017-04-28 13:56] LABS: GLUCOSE 115 mg/dL (70-99)
[2017-04-28 14:00] LABS: CREATININE 1.5 mg/dL (0.6-1.3); GFR ESTIMATE (CALCULATED) 43 mL/min/
[2017-04-28 14:01] LABS: UREA NITROGEN (BUN) 43 mg/dL (9-23)
[2017-04-29] VITALS (11 sets, daily range): BP systolic 95–158; BP diastolic 56–78
[2017-04-29 07:02] LABS: HEMATOCRIT 21.9 % (36.0-46.0); HEMOGLOBIN 6.6 G/DL (11.9-15.5); MCHC 30.1 G/DL (30.0-36.0); MCV 89.8 FL (83-99); PLATELET COUNT 155 K/uL (156-360); RBC DIS.WIDTH-CV 18.5 % (11.8-14.6); RBC DIS.WIDTH-SD 59.9 % (39-53); RED BLOOD COUNT 2.44 M/uL (3.80-5.20); WHITE BLOOD COUNT 2.2 K/uL (4.1-10.2)
[2017-04-29 07:18] LABS: CHLORIDE 115 MEQ/L (99-109); CREATININE 1.5 MG/DL (0.6-1.3); GFR ESTIMATE (CALCULATED) 43 mL/min/; GLUCOSE 92 mg/dL (70-99); POTASSIUM 4.1 MEQ/L (3.7-5.4); SODIUM 144 MEQ/L (136-147); UREA NITROGEN (BUN) 35 mg/dL (9-23)
[2017-04-30 00:51] LABS: HEMATOCRIT 26.1 % (36.0-46.0); HEMOGLOBIN 8.3 G/DL (11.9-15.5)
[2017-04-30 07:12] LABS: HEMATOCRIT 26.1 % (36.0-46.0); MCHC 30.7 G/DL (30.0-36.0); MCV 88.2 FL (83-99); PLATELET COUNT 156 K/uL (156-360); RBC DIS.WIDTH-CV 18.2 % (11.8-14.6); RBC DIS.WIDTH-SD 58.2 % (39-53); WHITE BLOOD COUNT 3.3 K/uL (4.1-10.2)
[2017-04-30 07:22] LABS: RED BLOOD COUNT 2.96 M/uL (3.80-5.20)
[2017-04-30 09:18] VITALS: BP 116/65
[2017-04-30 12:47] VITALS: BP 117/76
[2017-04-30 16:45] VITALS: BP 112/67
[2017-04-30 20:30] VITALS: BP 129/71
[2017-05-01 00:35] VITALS: BP 106/55
[2017-05-01 04:17] VITALS: BP 118/56
[2017-05-01 07:05] LABS: HEMATOCRIT 26.6 % (36.0-46.0); MCH 26.8 PG (29.0-34.0); MCHC 30.1 G/DL (30.0-36.0); MCV 89.3 FL (83-99); PLATELET COUNT 176 K/uL (156-360); RBC DIS.WIDTH-CV 18.4 % (11.8-14.6); RBC DIS.WIDTH-SD 59.7 % (39-53); RED BLOOD COUNT 2.98 M/uL (3.80-5.20); WHITE BLOOD COUNT 3.4 K/uL (4.1-10.2)
[2017-05-01 07:59] VITALS: BP 128/72
[2017-05-01 12:22] VITALS: BP 105/61
[2017-05-01 16:29] VITALS: BP 106/62
[2017-05-01 20:59] VITALS: BP 134/62
[2017-05-02 00:24] VITALS: BP 108/55
[2017-05-02 07:34] VITALS: BP 131/60
[2017-05-02 10:23] LABS: HEMATOCRIT 26.5 % (36.0-46.0); HEMOGLOBIN 8.2 G/DL (11.9-15.5); MCH 27.6 PG (29.0-34.0); MCHC 30.9 G/DL (30.0-36.0); MCV 89.2 FL (83-99); RBC DIS.WIDTH-CV 18.5 % (11.8-14.6); RBC DIS.WIDTH-SD 61.1 % (39-53); RED BLOOD COUNT 2.97 M/uL (3.80-5.20); WHITE BLOOD COUNT 2.7 K/uL (4.1-10.2)
[2017-05-02 10:45] LABS: HEMATOLOGY COMMENT 1 SMEAR COMPATIBLE; PLAT.SUFFICIENCY DECREASED; PLATELET COUNT 132 K/uL (156-360)
[2017-05-02 12:00] VITALS: BP 137/63
[2017-05-02] MEDS ORDERED: FAMOTIDINE20 MG PO (12:10)
[2017-05-02] MEDS ORDERED: SUCRALFATE1 GM/10 ML PO (12:10)
[2017-05-02] MEDS ORDERED: FOLIC ACID1 MG PO (12:11)
== END 2017-05-02 13:20 | disposition short-term general hospital (02) | DRG 378 ==
LOC: EME 22:31 → EDOF 04-28 02:06 → 5SOUTH 04-28 02:06 → ENRESERV 04-28 02:07 → 5SOUTH 04-28 22:22 → ENPENDDIS 05-02 → 5SOUTH 05-02 13:20
PROVIDERS: Emergency Medicine; Hospitalist; Internal Medicine
PROC: 30233N1 Transfusion of Nonautologous Red Blood Cells into Peripheral Vein, Percutaneous Approach (ICD-10-PCS; principal; 2017-04-28)
DX: K92.1 Melena (principal); D62 Acute posthemorrhagic anemia; I78.0 Hereditary hemorrhagic telangiectasia; K31.819 Angiodysplasia of stomach and duodenum without bleeding; E87.6 Hypokalemia; I48.2 Chronic atrial fibrillation; I13.0 Hypertensive heart and chronic kidney disease with heart failure and stage 1 through stage 4 chronic kidney disease, or unspecified chronic kidney disease; I50.32 Chronic diastolic (congestive) heart failure; N18.3 Chronic kidney disease, stage 3 (moderate); I27.20 Pulmonary hypertension, unspecified; Z66 Do not resuscitate
CPT/HCPCS: 80048; 80053; 83690; 84484; 85014; 85018; 85027; 85610; 85730; 86850; 86870; 86900; 86901; 86905; 86920; 93005; 99281; 99285; J1200; J1756; J1940; J7030; J7050; P9016; S0028

== ENCOUNTER 2017-05-07 12:52 | Inpatient (IN) | payer OTHER ==
[2017-05-07] VITALS (8 sets, daily range): BP systolic 117–140; BP diastolic 66–90
[~2017-05-07] VITALS: Ht 162.6 cm; Wt 65.8 kg
[2017-05-07 13:46] LABS: HEMATOCRIT 21.4 % (36.0-46.0); MCH 26.1 PG (29.0-34.0); MCHC 29.9 G/DL (30.0-36.0); MCV 87.3 FL (83-99); RBC DIS.WIDTH-CV 17.3 % (11.8-14.6); RBC DIS.WIDTH-SD 54.8 % (39-53); RED BLOOD COUNT 2.45 M/uL (3.80-5.20); WHITE BLOOD COUNT 3.4 K/uL (4.1-10.2)
[2017-05-07 13:48] LABS: CHLORIDE 111 mEq/L (99-109); HEMOGLOBIN 6.4 G/DL (11.9-15.5); PLATELET COUNT 174 K/uL (156-360); POTASSIUM 3.9 mEq/L (3.7-5.4)
[2017-05-07 13:49] LABS: SODIUM 142 mEq/L (136-147)
[2017-05-07 13:50] LABS: GLUCOSE 124 mg/dL (70-99)
[2017-05-07 13:54] LABS: CREATININE 1.2 mg/dL (0.6-1.3); GFR ESTIMATE (CALCULATED) 55 mL/min/
[2017-05-07 13:55] LABS: UREA NITROGEN (BUN) 29 mg/dL (9-23)
[2017-05-09] MEDS ORDERED: VITAMIN D32000 UNI1 PO (09:18)
[2017-05-09] MEDS ORDERED: ACID CONTROLLER20 MG PO (09:20)
[2017-06-20] MEDS ORDERED: AMICAR PO (09:35)
[2017-06-20] MEDS ORDERED: FAMOTIDINE20 MG PO (09:36)
== END 2017-05-07 20:20 | disposition left against medical advice (07) | DRG 300 ==
LOC: EME 12:52 → EDOF 16:22 → ENRESERV 16:26 → EDOF 20:20
PROC: 30233N1 Transfusion of Nonautologous Red Blood Cells into Peripheral Vein, Percutaneous Approach (ICD-10-PCS; principal; 2017-05-07)
DX: I78.0 Hereditary hemorrhagic telangiectasia (principal); K92.1 Melena; D72.818 Other decreased white blood cell count; K92.2 Gastrointestinal hemorrhage, unspecified; D64.9 Anemia, unspecified; Z91.19 Patient's noncompliance with other medical treatment and regimen
CPT/HCPCS: 80048; 85014; 85018; 85027; 86850; 86900; 86901; 86920; 99281; 99285; J1200; P9016

== ENCOUNTER 2017-05-13 14:10 | Observation (INO) | payer OTHER ==
[~2017-05-13] VITALS: Ht 162.6 cm; Wt 65.3 kg
[~2017-05-13 14:10] MED LIST changes: +ACID CONTROLLER20 MG PO
[2017-05-13 14:57] LABS: HEMATOCRIT 21.8 % (36.0-46.0); MCH 27.8 PG (29.0-34.0); MCHC 29.8 G/DL (30.0-36.0); RBC DIS.WIDTH-CV 23.4 % (11.8-14.6); RBC DIS.WIDTH-SD 68.7 % (39-53); RED BLOOD COUNT 2.34 M/uL (3.80-5.20); WHITE BLOOD COUNT 5.8 K/uL (4.1-10.2)
[2017-05-13 15:05] LABS: HEMOGLOBIN 6.5 G/DL (11.9-15.5); MCV 93.2 FL (83-99); PLATELET COUNT 243 K/uL (156-360)
[2017-05-13 15:12] LABS: CHLORIDE 108 MEQ/L (99-109); CREATININE 1.4 MG/DL (0.6-1.3); GFR ESTIMATE (CALCULATED) 46 mL/min/; GLUCOSE 105 mg/dL (70-99); POTASSIUM 3.8 MEQ/L (3.7-5.4); SODIUM 139 MEQ/L (136-147); UREA NITROGEN (BUN) 27 mg/dL (9-23)
[2017-05-13 15:34] LABS: ALBUMIN 2.8 G/DL (3.2-4.8); ALKALINE PHOSPHATASE 68 IU/L (3-129); ALT (GPT) 10 IU/L (3-49); AST (GOT) 14 IU/L (2-34); DIRECT BILIRUBIN 0.2 mg/dL (0.0-0.3); TOTAL BILIRUBIN 0.8 MG/DL (0.0-1.0); TOTAL PROTEIN 4.9 G/DL (6.4-8.3)
[2017-05-13 15:52] LABS: TROP-I INTERPRETATION NEGATIVE; TROPONIN-I 0.01 ng/mL (0.0-0.30)
[2017-05-13 18:15] VITALS: BP 129/56
[2017-05-13 22:34] VITALS: BP 126/59
[2017-05-13 22:43] VITALS: BP 118/56
[2017-05-13 23:40] VITALS: BP 90/60
[2017-05-14] VITALS (12 sets, daily range): BP systolic 91–129; BP diastolic 54–72
[2017-05-14 09:37] LABS: HEMATOCRIT 25.6 % (36.0-46.0); HEMOGLOBIN 7.8 G/DL (11.9-15.5); MCHC 30.5 G/DL (30.0-36.0); MCV 91.8 FL (83-99); RBC DIS.WIDTH-CV 20.3 % (11.8-14.6); RBC DIS.WIDTH-SD 57.2 % (39-53); RED BLOOD COUNT 2.79 M/uL (3.80-5.20); WHITE BLOOD COUNT 3.1 K/uL (4.1-10.2)
[2017-05-14 10:00] LABS: TROP-I INTERPRETATION NEGATIVE; TROPONIN-I 0.02 ng/mL (0.0-0.30)
[2017-05-14 10:07] LABS: PLAT.SUFFICIENCY DECREASED
[2017-05-14 10:10] LABS: PLATELET COUNT 119 K/uL (156-360)
[2017-05-14 10:15] LABS: CHLORIDE 111 MEQ/L (99-109); CREATININE 1.3 MG/DL (0.6-1.3); GFR ESTIMATE (CALCULATED) 50 mL/min/; GLUCOSE 111 mg/dL (70-99); POTASSIUM 3.9 MEQ/L (3.7-5.4); SODIUM 143 MEQ/L (136-147); UREA NITROGEN (BUN) 28 mg/dL (9-23)
[2017-05-14 19:18] LABS: INTER. NORMALIZED RATIO 1.1
[2017-05-14 19:21] LABS: PTT 31.1 SEC (25-37)
[2017-05-15] VITALS (9 sets, daily range): BP systolic 108–158; BP diastolic 62–77
[2017-05-15 09:54] LABS: HEMATOCRIT 28.7 % (36.0-46.0); MCV 92.6 FL (83-99)
[2017-05-15 09:55] LABS: HEMATOCRIT 29.1 % (36.0-46.0); MCH 28.8 PG (29.0-34.0); MCHC 30.9 G/DL (30.0-36.0); PLATELET COUNT 147 K/uL (156-360); RBC DIS.WIDTH-CV 20.5 % (11.8-14.6); RBC DIS.WIDTH-SD 65.2 % (39-53); RED BLOOD COUNT 3.13 M/uL (3.80-5.20); WHITE BLOOD COUNT 3.4 K/uL (4.1-10.2)
[2017-05-15 09:57] LABS: BASOPHIL (%) 0.6 % (0-1); EOSINOPHIL (%) 2.6 % (0-5); EOSINOPHIL COUNT 0.1 K/uL (0-0.3); IMMATURE GRANULOCYTE (%) 0.6 % (0.0-0.7); LYMPHOCYTE (%) 10.5 % (15-42); LYMPHOCYTE COUNT 0.4 K/uL (1.0-2.8); MONOCYTE COUNT 0.2 K/uL (0-0.8); NEUTROPHIL (%) 78.7 % (45-76); NEUTROPHIL COUNT 2.7 K/uL (1.8-6.4)
[2017-05-15 10:22] LABS: ALBUMIN 2.9 G/DL (3.2-4.8); ALKALINE PHOSPHATASE 65 IU/L (3-129); ALT (GPT) 10 IU/L (3-49); AST (GOT) 15 IU/L (2-34); CHLORIDE 112 MEQ/L (99-109); CREATININE 1.1 MG/DL (0.6-1.3); GFR ESTIMATE (CALCULATED) > 59 mL/min/; GLUCOSE 109 mg/dL (70-99); POTASSIUM 3.6 MEQ/L (3.7-5.4); SODIUM 142 MEQ/L (136-147); TOTAL PROTEIN 4.6 G/DL (6.4-8.3); UREA NITROGEN (BUN) 24 mg/dL (9-23)
[2017-05-15 10:24] LABS: TOTAL BILIRUBIN 2.7 MG/DL (0.0-1.0)
[2017-05-15 17:11] LABS: TROP-I INTERPRETATION NEGATIVE; TROPONIN-I 0.04 ng/mL (0.0-0.30)
[2017-05-15 23:18] LABS: TROP-I INTERPRETATION NEGATIVE; TROPONIN-I 0.05 ng/mL (0.0-0.30)
[2017-05-16] VITALS (12 sets, daily range): BP systolic 106–147; BP diastolic 59–73
[2017-05-16 06:31] LABS: BASOPHIL (%) 0.6 % (0-1); EOSINOPHIL (%) 4.4 % (0-5); EOSINOPHIL COUNT 0.1 K/uL (0-0.3); HEMATOCRIT 23.8 % (36.0-46.0); HEMOGLOBIN 7.2 G/DL (11.9-15.5); IMMATURE GRANULOCYTE (%) 0.3 % (0.0-0.7); LYMPHOCYTE (%) 8.2 % (15-42); LYMPHOCYTE COUNT 0.3 K/uL (1.0-2.8); MCH 28.8 PG (29.0-34.0); MCHC 30.3 G/DL (30.0-36.0); MCV 95.2 FL (83-99); MONOCYTE (%) 8.2 % (3-12); MONOCYTE COUNT 0.3 K/uL (0-0.8); NEUTROPHIL (%) 78.3 % (45-76); NEUTROPHIL COUNT 2.5 K/uL (1.8-6.4); PLATELET COUNT 134 K/uL (156-360); RBC DIS.WIDTH-CV 21.1 % (11.8-14.6); RBC DIS.WIDTH-SD 70.8 % (39-53); WHITE BLOOD COUNT 3.2 K/uL (4.1-10.2)
[2017-05-16 06:54] LABS: TROP-I INTERPRETATION NEGATIVE; TROPONIN-I 0.02 ng/mL (0.0-0.30)
[2017-05-16 07:04] LABS: CHLORIDE 118 MEQ/L (99-109); GFR ESTIMATE (CALCULATED) > 59 mL/min/; GLUCOSE 99 mg/dL (70-99); SODIUM 141 MEQ/L (136-147); UREA NITROGEN (BUN) 24 mg/dL (9-23)
[2017-05-16 07:19] LABS: POTASSIUM 4.4 MEQ/L (3.7-5.4)
[2017-05-16 20:02] LABS: BASOPHIL (%) 0.6 % (0-1); EOSINOPHIL (%) 5.1 % (0-5); EOSINOPHIL COUNT 0.2 K/uL (0-0.3); HEMATOCRIT 28.5 % (36.0-46.0); HEMOGLOBIN 8.8 G/DL (11.9-15.5); IMMATURE GRANULOCYTE (%) 0.3 % (0.0-0.7); LYMPHOCYTE (%) 10.1 % (15-42); LYMPHOCYTE COUNT 0.4 K/uL (1.0-2.8); MCH 28.5 PG (29.0-34.0); MCHC 30.9 G/DL (30.0-36.0); MCV 92.2 FL (83-99); MONOCYTE COUNT 0.3 K/uL (0-0.8); NEUTROPHIL (%) 74.9 % (45-76); NEUTROPHIL COUNT 2.7 K/uL (1.8-6.4); PLATELET COUNT 139 K/uL (156-360); RBC DIS.WIDTH-SD 64.1 % (39-53); WHITE BLOOD COUNT 3.6 K/uL (4.1-10.2)
[2017-05-16 20:41] LABS: RED BLOOD COUNT 3.09 M/uL (3.80-5.20)
[2017-05-17] VITALS (7 sets, daily range): BP systolic 92–144; BP diastolic 56–81
[2017-05-17 05:56] LABS: HEMATOCRIT 27.3 % (36.0-46.0); HEMOGLOBIN 8.3 G/DL (11.9-15.5); MCH 28.1 PG (29.0-34.0); MCHC 30.4 G/DL (30.0-36.0); MCV 92.5 FL (83-99); PLATELET COUNT 134 K/uL (156-360); RBC DIS.WIDTH-CV 19.9 % (11.8-14.6); RBC DIS.WIDTH-SD 65.4 % (39-53); RED BLOOD COUNT 2.95 M/uL (3.80-5.20); WHITE BLOOD COUNT 2.8 K/uL (4.1-10.2)
[2017-05-17 18:27] LABS: BASOPHIL (%) 0.7 % (0-1); EOSINOPHIL COUNT 0.2 K/uL (0-0.3); IMMATURE GRANULOCYTE (%) 0.5 % (0.0-0.7); LYMPHOCYTE (%) 12.1 % (15-42); LYMPHOCYTE COUNT 0.5 K/uL (1.0-2.8); MCH 27.9 PG (29.0-34.0); MCV 92.9 FL (83-99); MONOCYTE (%) 5.7 % (3-12); MONOCYTE COUNT 0.2 K/uL (0-0.8); NEUTROPHIL COUNT 3.3 K/uL (1.8-6.4); PLATELET COUNT 130 K/uL (156-360); RBC DIS.WIDTH-CV 19.6 % (11.8-14.6); RBC DIS.WIDTH-SD 65.5 % (39-53); RED BLOOD COUNT 3.23 M/uL (3.80-5.20); WHITE BLOOD COUNT 4.2 K/uL (4.1-10.2)
[2017-05-18 03:50] VITALS: BP 111/71
[2017-05-18 08:31] VITALS: BP 125/7
[2017-05-18 11:55] VITALS: BP 132/76
[2017-05-18 15:13] VITALS: BP 130/86
[2017-05-18 20:00] VITALS: BP 129/77
[2017-05-18 21:29] LABS: BASOPHIL (%) 0.7 % (0-1); EOSINOPHIL (%) 0.2 % (0-5); HEMATOCRIT 27.2 % (36.0-46.0); HEMOGLOBIN 8.1 G/DL (11.9-15.5); IMMATURE GRANULOCYTE (%) 0.5 % (0.0-0.7); LYMPHOCYTE (%) 3.5 % (15-42); LYMPHOCYTE COUNT 0.2 K/uL (1.0-2.8); MCH 28.5 PG (29.0-34.0); MCHC 29.8 G/DL (30.0-36.0); MCV 95.8 FL (83-99); MONOCYTE (%) 3.8 % (3-12); MONOCYTE COUNT 0.2 K/uL (0-0.8); NEUTROPHIL (%) 91.3 % (45-76); NEUTROPHIL COUNT 3.9 K/uL (1.8-6.4); PLATELET COUNT 159 K/uL (156-360); RBC DIS.WIDTH-CV 18.6 % (11.8-14.6); RBC DIS.WIDTH-SD 65.3 % (39-53); RED BLOOD COUNT 2.84 M/uL (3.80-5.20); WHITE BLOOD COUNT 4.3 K/uL (4.1-10.2)
[2017-05-18 23:37] VITALS: BP 97/58
[2017-05-19] VITALS (9 sets, daily range): BP systolic 90–117; BP diastolic 54–74
[2017-05-19 05:58] LABS: HEMATOCRIT 26.2 % (36.0-46.0); HEMOGLOBIN 7.6 G/DL (11.9-15.5); MCH 28.1 PG (29.0-34.0); PLATELET COUNT 138 K/uL (156-360); RBC DIS.WIDTH-CV 18.6 % (11.8-14.6); RBC DIS.WIDTH-SD 65.8 % (39-53); WHITE BLOOD COUNT 4.8 K/uL (4.1-10.2)
[2017-05-19 21:05] LABS: HEMATOCRIT 28.5 % (36.0-46.0); HEMOGLOBIN 8.8 G/DL (11.9-15.5); MCHC 30.9 G/DL (30.0-36.0); MCV 94.1 FL (83-99); PLATELET COUNT 120 K/uL (156-360); RBC DIS.WIDTH-CV 17.4 % (11.8-14.6); RBC DIS.WIDTH-SD 59.4 % (39-53); RED BLOOD COUNT 3.03 M/uL (3.80-5.20); WHITE BLOOD COUNT 3.9 K/uL (4.1-10.2)
[2017-05-20 00:13] VITALS: BP 110/70
[2017-05-20 00:19] VITALS: BP 110/78
[2017-05-20 03:35] VITALS: BP 111/58
[2017-05-20 05:13] LABS: BASOPHIL (%) 0.6 % (0-1); EOSINOPHIL (%) 3.7 % (0-5); EOSINOPHIL COUNT 0.1 K/uL (0-0.3); HEMOGLOBIN 8.5 G/DL (11.9-15.5); IMMATURE GRANULOCYTE (%) 0.3 % (0.0-0.7); LYMPHOCYTE (%) 11.2 % (15-42); LYMPHOCYTE COUNT 0.4 K/uL (1.0-2.8); MCH 28.4 PG (29.0-34.0); MCHC 30.4 G/DL (30.0-36.0); MCV 93.6 FL (83-99); MONOCYTE (%) 8.4 % (3-12); MONOCYTE COUNT 0.3 K/uL (0-0.8); NEUTROPHIL (%) 75.8 % (45-76); NEUTROPHIL COUNT 2.4 K/uL (1.8-6.4); PLATELET COUNT 110 K/uL (156-360); RBC DIS.WIDTH-CV 17.6 % (11.8-14.6); RBC DIS.WIDTH-SD 59.8 % (39-53); RED BLOOD COUNT 2.99 M/uL (3.80-5.20); WHITE BLOOD COUNT 3.2 K/uL (4.1-10.2)
[2017-05-20 05:37] LABS: ALBUMIN 2.7 G/DL (3.2-4.8); ALKALINE PHOSPHATASE 50 IU/L (3-129); ALT (GPT) 7 IU/L (3-49); AMYLASE 47 IU/L (1-118); AST (GOT) 11 IU/L (2-34); DIRECT BILIRUBIN 0.3 mg/dL (0.0-0.3); TOTAL BILIRUBIN 0.9 MG/DL (0.0-1.0); TOTAL PROTEIN 4.2 G/DL (6.4-8.3)
[2017-05-20 07:19] VITALS: BP 101/56
[2017-05-20 11:38] VITALS: BP 90/60
[2017-05-20] MEDS ORDERED: BENTYL20 MG PO (13:51)
[2017-05-20] MEDS ORDERED: DOCUSATE SODIU100 MG PO (13:52)
== END 2017-05-20 14:55 | disposition home or self-care (01) ==
LOC: EME 14:10 → EDOF 16:32 → 5WEST 16:32 → EDOF 16:32 → ENRESERV 16:37 → 5WEST 18:06
PROVIDERS: Hospitalist; Internal Medicine; Nurse Practitioner Adult Health; Specialist
DX: K92.2 Gastrointestinal hemorrhage, unspecified (principal); K55.20 Angiodysplasia of colon without hemorrhage; K57.30 Diverticulosis of large intestine without perforation or abscess without bleeding; K64.8 Other hemorrhoids; R07.9 Chest pain, unspecified; R04.0 Epistaxis; D50.0 Iron deficiency anemia secondary to blood loss (chronic); I78.0 Hereditary hemorrhagic telangiectasia; I11.0 Hypertensive heart disease with heart failure; I50.9 Heart failure, unspecified; I08.1 Rheumatic disorders of both mitral and tricuspid valves; M81.0 Age-related osteoporosis without current pathological fracture; I48.0 Paroxysmal atrial fibrillation; I27.20 Pulmonary hypertension, unspecified; Z86.19 Personal history of other infectious and parasitic diseases
CPT/HCPCS: 74018; 80048; 80053; 80076; 82150; 84484; 85014; 85018; 85025; 85025 91; 85027; 85610; 85730; 86850; 86900; 86901; 86920; 93005; 99281; 99284; C9113; G0378; J1200; J2405; J3010; J3480; J7030; J7040; P9016; P9040

== ENCOUNTER 2017-06-13 10:50 | Inpatient (IN) | payer OTHER ==
[~2017-06-13] VITALS: Ht 162.6 cm; Wt 69.5 kg
[2017-06-13] VITALS (8 sets, daily range): BP systolic 108–124; BP diastolic 60–84
[~2017-06-13 10:50] MED LIST changes: +BENTYL20 MG PO; +DOCUSATE SODIU100 MG PO
[2017-06-13 13:37] LABS: HEMATOCRIT 21.7 % (36.0-46.0); MCH 28.5 PG (29.0-34.0); PLATELET COUNT 232 K/uL (156-360); RBC DIS.WIDTH-CV 22.7 % (11.8-14.6); RBC DIS.WIDTH-SD 76.2 % (39-53); RED BLOOD COUNT 2.28 M/uL (3.80-5.20); WHITE BLOOD COUNT 5.7 K/uL (4.1-10.2)
[2017-06-13 13:38] LABS: CHLORIDE 110 mEq/L (99-109); POTASSIUM 3.8 mEq/L (3.7-5.4); SODIUM 139 mEq/L (136-147)
[2017-06-13 13:39] LABS: GLUCOSE 132 mg/dL (70-99); HEMOGLOBIN 6.5 G/DL (11.9-15.5); MCV 95.2 FL (83-99)
[2017-06-13 13:43] LABS: CREATININE 1.3 mg/dL (0.6-1.3); GFR ESTIMATE (CALCULATED) 50 mL/min/
[2017-06-13 13:44] LABS: UREA NITROGEN (BUN) 33 mg/dL (9-23)
[2017-06-13 13:50] LABS: APPEARANCE CLEAR ((CLEAR)); BILIRUBIN NEGATIVE; BLOOD NEGATIVE; COLOR YELLOW ((YELLOW)); GLUCOSE (STRIP) NEGATIVE; KETONES NEGATIVE; LEUKOCYTES SMALL; NITRITE NEGATIVE; PROTEIN (STRIP) NEGATIVE; SPECIFIC GRAVITY 1.013 (1.000-1.030); UROBILINOGEN 0.2 MG/DL (0.2-1.0)
[2017-06-13 13:50] LABS: TROP-I INTERPRETATION NEGATIVE; TROPONIN-I < 0.01 ng/mL (0.0-0.30)
[2017-06-13 13:54] LABS: BACTERIA RARE /HPF; EPITHELIAL CELLS NONE SEEN /HPF; MUCUS NONE SEEN /LPF; RED BLOOD CELLS 0-5 /HPF (0-5)
[2017-06-13 20:56] LABS: HEMATOCRIT 25.3 % (36.0-46.0); HEMOGLOBIN 7.7 G/DL (11.9-15.5); MCV 91.7 FL (83-99)
[2017-06-14] VITALS (10 sets, daily range): BP systolic 96–128; BP diastolic 55–65
[2017-06-14 08:39] LABS: ALBUMIN 2.5 G/DL (3.2-4.8); ALKALINE PHOSPHATASE 60 IU/L (3-129); ALT (GPT) 7 IU/L (3-49); AST (GOT) 11 IU/L (2-34); CHLORIDE 112 MEQ/L (99-109); CREATININE 1.4 MG/DL (0.6-1.3); DIRECT BILIRUBIN 0.4 mg/dL (0.0-0.3); GFR ESTIMATE (CALCULATED) 46 mL/min/; GLUCOSE 104 mg/dL (70-99); POTASSIUM 3.7 MEQ/L (3.7-5.4); SODIUM 142 MEQ/L (136-147); TOTAL BILIRUBIN 1.4 MG/DL (0.0-1.0); TOTAL PROTEIN 4.4 G/DL (6.4-8.3); UREA NITROGEN (BUN) 30 mg/dL (9-23)
[2017-06-14 08:58] LABS: HEMATOCRIT 23.3 % (36.0-46.0); HEMOGLOBIN 7.2 G/DL (11.9-15.5); MCH 28.5 PG (29.0-34.0); MCHC 30.9 G/DL (30.0-36.0); MCV 92.1 FL (83-99); RBC DIS.WIDTH-CV 21.8 % (11.8-14.6); RBC DIS.WIDTH-SD 72.8 % (39-53); RED BLOOD COUNT 2.53 M/uL (3.80-5.20); WHITE BLOOD COUNT 2.7 K/uL (4.1-10.2)
[2017-06-14 09:15] LABS: PLAT.SUFFICIENCY DECREASED
[2017-06-14 09:16] LABS: PLATELET COUNT 132 K/uL (156-360)
[2017-06-14 17:11] LABS: HEMATOCRIT 26.9 % (36.0-46.0); HEMOGLOBIN 8.3 G/DL (11.9-15.5); MCV 91.5 FL (83-99)
[2017-06-15] VITALS (8 sets, daily range): BP systolic 105–180; BP diastolic 57–90
[2017-06-15 06:33] LABS: HEMATOCRIT 25.3 % (36.0-46.0); HEMOGLOBIN 7.8 G/DL (11.9-15.5); MCH 28.3 PG (29.0-34.0); MCHC 30.8 G/DL (30.0-36.0); MCV 91.7 FL (83-99); PLATELET COUNT 134 K/uL (156-360); RBC DIS.WIDTH-CV 19.9 % (11.8-14.6); RBC DIS.WIDTH-SD 65.7 % (39-53); RED BLOOD COUNT 2.76 M/uL (3.80-5.20); WHITE BLOOD COUNT 2.4 K/uL (4.1-10.2)
[2017-06-15 06:56] LABS: CHLORIDE 112 MEQ/L (99-109); CREATININE 1.1 MG/DL (0.6-1.3); GFR ESTIMATE (CALCULATED) > 59 mL/min/; GLUCOSE 103 mg/dL (70-99); POTASSIUM 3.8 MEQ/L (3.7-5.4); SODIUM 143 MEQ/L (136-147); UREA NITROGEN (BUN) 24 mg/dL (9-23)
[2017-06-15 17:07] LABS: HEMATOCRIT 32.3 % (36.0-46.0); HEMOGLOBIN 10.1 G/DL (11.9-15.5); MCV 89.2 FL (83-99)
[2017-06-16] VITALS: BP 117/61
[2017-06-16 00:41] LABS: HEMATOCRIT 27.3 % (36.0-46.0); HEMOGLOBIN 8.7 G/DL (11.9-15.5); MCV 89.5 FL (83-99)
[2017-06-16 07:15] VITALS: BP 116/63
[2017-06-16 10:08] LABS: HEMATOCRIT 28.5 % (36.0-46.0); HEMATOCRIT 29.3 % (36.0-46.0); HEMOGLOBIN 8.8 G/DL (11.9-15.5); HEMOGLOBIN 8.9 G/DL (11.9-15.5); MCH 28.2 PG (29.0-34.0); MCHC 30.4 G/DL (30.0-36.0); MCV 90.8 FL (83-99); MCV 92.7 FL (83-99); PLATELET COUNT 152 K/uL (156-360); RBC DIS.WIDTH-CV 18.6 % (11.8-14.6); RBC DIS.WIDTH-SD 63.7 % (39-53); RED BLOOD COUNT 3.16 M/uL (3.80-5.20)
[2017-06-16 11:29] VITALS: BP 125/70
[2017-06-16 11:42] LABS: CHLORIDE 114 MEQ/L (99-109); GFR ESTIMATE (CALCULATED) > 59 mL/min/; GLUCOSE 116 mg/dL (70-99); SODIUM 143 MEQ/L (136-147); UREA NITROGEN (BUN) 29 mg/dL (9-23)
[2017-06-16] MEDS ORDERED: AMICAR PO (12:59)
[2017-06-16] MEDS ORDERED: LOPRESSOR25 MG PO (12:59)
[2017-06-16] MEDS ORDERED: PROTONIX40 MG PO (13:00)
== END 2017-06-16 15:14 | disposition home or self-care (01) | DRG 378 ==
LOC: EME 10:50 → EDOF 15:26 → ENRESERV 15:46 → 5EAST 19:27
PROVIDERS: Hospitalist; Physician Assistant; Physician Assistant Medical
PROC: 30233N1 Transfusion of Nonautologous Red Blood Cells into Peripheral Vein, Percutaneous Approach (ICD-10-PCS; principal; 2017-06-13)
DX: K92.2 Gastrointestinal hemorrhage, unspecified (principal); D61.818 Other pancytopenia; I48.0 Paroxysmal atrial fibrillation; D50.0 Iron deficiency anemia secondary to blood loss (chronic); I78.0 Hereditary hemorrhagic telangiectasia; I50.32 Chronic diastolic (congestive) heart failure; I13.0 Hypertensive heart and chronic kidney disease with heart failure and stage 1 through stage 4 chronic kidney disease, or unspecified chronic kidney disease; K21.9 Gastro-esophageal reflux disease without esophagitis; R04.0 Epistaxis; K64.8 Other hemorrhoids; N18.3 Chronic kidney disease, stage 3 (moderate); M81.0 Age-related osteoporosis without current pathological fracture; Z79.899 Other long term (current) drug therapy; Q27.9 Congenital malformation of peripheral vascular system, unspecified; Z72.0 Tobacco use; Z82.49 Family history of ischemic heart disease and other diseases of the circulatory system
CPT/HCPCS: 80048; 80076; 81003; 84484; 85014; 85018; 85027; 86850; 86900; 86901; 86920; 93005; 99281; 99285; J1200; J1940; J7030; P9016; S0017